=== PATIENT | female | born 1970 | race Caucasian/White ===

== ENCOUNTER 2018-12-24 05:23 | Emergency (ER) | payer MEDICARE, MEDICAID ==
[~2018-12-24] VITALS: Ht 162.6 cm; Wt 92.0 kg
[2018-12-24] MEDS ORDERED: KETOROLAC 30MG/ML VIAL IV STA (06:26)
[2018-12-24] MEDS ORDERED: SODIUM CHLORIDE 0.9% 1,000 ML IV ONE (06:26)
[2018-12-24 07:31] LABS: BASOPHILS % 0.5 % (0.0-2.0); EOSINOPHILS % 1.1 % (0.0-5.0); HEMATOCRIT. 39.5 % (36.0-48.0); HEMOGLOBIN. 12.3 g/dL (12.0-16.0); LYMPHOCYTES % 10.8 % (20.0-50.0); MEAN CORPUSCULAR HEMOGLOBIN 23.5 pg (28.0-32.0); MEAN CORPUSCULAR VOLUME 75.2 fL (81.0-99.0); MONOCYTES % 4.7 % (2.0-8.0); NEUTROPHILS % 82.9 % (40.0-76.0); PLATELET 342 x1000/uL (130-400); RED BLOOD CELL COUNT 5.26 mill/uL (4.2-5.4); RED CELL DISTRIBUTION WIDTH 16.1 % (11.6-14.6)
[2018-12-24 07:34] LABS: CHLORIDE 104 mEq/L (98-107)
[2018-12-24 07:37] LABS: PARTIAL THROMBOPLASTIN TIME 24.3 sec (23.4-31.0); PROTHROMBIN TIME 9.7 sec (9.1-11.1)
[2018-12-24 07:39] LABS: ETHANOL BLOOD < 10 mg/dL
[2018-12-24 07:46] LABS: *BARBITURATES SCREEN URINE NEGATIVE (NEGATIVE)
[2018-12-24 07:47] LABS: *AMPHETAMINES SCREEN URINE NEGATIVE (NEGATIVE); *BENZODIAZEPINES SCREEN URINE NEGATIVE (NEGATIVE); METHADONE URINE SCREEN NEGATIVE (NEGATIVE); OPIATES URINE SCREEN NEGATIVE (NEGATIVE)
[2018-12-24 07:48] LABS: *COCAINE SCREEN URINE PRESUMTIVE POSITIVE (NEGATIVE); PHENCYCLIDINE URINE SCREEN NEGATIVE (NEGATIVE)
[2018-12-24 07:49] LABS: CANNABINOID URINE SCREEN PRESUMTIVE POSITIVE (NEGATIVE)
[2018-12-24 07:57] LABS: HCG SCREEN NEGATIVE
[2018-12-24] MEDS ORDERED: IOHEXOL-300 100 ML BOTTLE ONE (09:43)
[2018-12-25 09:30] VITALS: BP 130/70
== END 2018-12-25 10:30 | disposition home or self-care (01) ==
LOC: ER 05:23
DX: R55 Syncope and collapse (principal); R51 Headache; F14.10 Cocaine abuse, uncomplicated; F31.9 Bipolar disorder, unspecified
CPT/HCPCS: 36415; 70450; 80048; 80305; 81025; 84703; 85025; 85610; 85730; 93005; 96374; 99284; G0482; J1885; J7030; Q9967

== ENCOUNTER 2019-04-06 10:33 | Emergency (ER) | payer MEDICARE, MEDICAID ==
[~2019-04-06] VITALS: Ht 162.6 cm; Wt 88.0 kg
[2019-04-06 11:00] VITALS: BP 169/105
== END 2019-04-07 01:03 | disposition left against medical advice (07) ==
LOC: ER 10:33
DX: Z53.21 Procedure and treatment not carried out due to patient leaving prior to being seen by health care provider (principal)